=== PATIENT | male | born 1980 | race Caucasian/White ===

== ENCOUNTER 2018-08-03 17:03 | Emergency (ER) | payer MEDICAID, OTHER ==
[~2018-08-03] VITALS: Ht 188 cm; Wt 83.9 kg
[2018-08-03 17:44] VITALS: BP 113/74
--- NOTE | 2018-08-03 17:44 | NUR ---
ED Nurse Note: left arm reddened and edema noted x 2 days per pt. pt has been injecting self. pt noted to have redness on the left forearm. seen by joyce byrd. will continue to monitor
[2018-08-03] MEDS ORDERED: Clindamycin 600mg 50 ML IVPB ONE (18:00)
[2018-08-03] MEDS ORDERED: IBUPROFEN600 MG ORAL (18:41)
[2018-08-03] MEDS ORDERED: CLINDAMYCIN HC300 MG ORAL (18:41)
[2018-08-03 18:50] VITALS: BP 113/74
--- NOTE | 2018-08-03 18:50 | NUR ---
ER DISCHARGE NOTE: Patient is cleared to be discharged per ERMD, pt is aox4, on room air, with stable vital signs. pt was given dc and prescription instructions, pt was able to verbalize understanding, pt id band and iv site removed without complications. pt is able to ambulate with steady gait. pt took all belongings.ED
--- NOTE | 2018-08-03 20:23 | Emergency Room Report ---
History of Present Illness General Chief Complaint: Skin Rash/Abscess Source: Patient Present Illness HPI Patient is a 38-year-old male presenting for possible skin infection. He does admit to IV drug abuse. He noticed redness at the left antecubital area 2 days prior which has been slowly increasing in size. Pain is an 8 out of 10 dull ache worse with touch. Does not radiate. He denies any discharge or bleeding. He denies other symptoms including nausea, vomiting, fever, chills, numbness or tingling. He does admit to having HIV with a recent T-cell count of approximately 1100. He is actively being treated. Allergies: Coded Allergies: No Known Allergies (Unverified , 08/03/18) Patient History Past Medical History: see triage record Pertinent Family History: none Reviewed Nursing Documentation: PMH: Agreed; PSxH: Agreed Nursing Documentation-PMH Past Medical History: No History, Except For Review of Systems All Other Systems: negative except mentioned in HPI Physical Exam Vital Signs Date Time Temp Pulse Resp B/P (MAP) Pulse Ox O2 Delivery O2 Flow Rate FiO2 08/03/18 17:18 97.7 95 20 113/74 99 Room Air Sp02 EP Interpretation: reviewed, normal General Appearance: no apparent distress, alert, GCS 15, non-toxic Head: normocephalic, atraumatic Respiratory: chest non-tender, lungs clear, normal breath sounds, speaking full sentences Cardiovascular #1: regular rate, rhythm, no edema Musculoskeletal: back normal, gait/station normal, normal range of motion, inflammation, tender - TTP over the L antecubital area Neurologic: alert, oriented x3, responsive, motor strength/tone normal, sensory intact, speech normal Psychiatric: judgement/insight normal, memory normal, mood/affect normal, no suicidal/homicidal ideation Skin: rash - erythema to L antecubital region Medical Decision Making PA Attestation Dr. Vences is my supervising physician. Patient management was discussed with my supervising physician Diagnostic Impression: Primary Impression: Cellulitis Qualified Codes: L03.114 - Cellulitis of left upper limb ER Course The patient is a 38-year-old male presenting for left arm infection Differential diagnosis considered but not limited to: Cellulitis, abscess, phlebitis, compartment syndrome, among others Physical exam: Afebrile. No apparent distress Left arm antecubital region has erythema. No fluctuance or induration. Area is hot to the touch. Tender to palpation. Full active range of motion of the elbow, wrist, and fingers are intact Sensation is intact to light touch Patient is given IV clindamycin in the emergency department and discharged with prescription for clindamycin. He is told that he needs to follow-up with primary care within the next 3 days. He is given ER return precautions including if the redness enlarges, pain worsens, or if he notices fever or chills Last Vital Signs Date Time Temp Pulse Resp B/P (MAP) Pulse Ox O2 Delivery O2 Flow Rate FiO2 08/03/18 18:50 97.7 90 20 113/74 99 Room Air Status: improved Disposition: HOME, SELF-CARE Condition: Improved Scripts Clindamycin Hcl (CLINDAMYCIN HCL) 300 Mg Capsule 300 MG ORAL FOUR TIMES A DAY, #28 CAP Prov: ODELL MCGUIRE 08/03/18 Ibuprofen* (MOTRIN*) 600 Mg Tablet 600 MG ORAL Q8H PRN for For Pain, #30 TAB 0 Refills Prov: ODELL MCGUIRE 08/03/18 Patient Instructions: Cellulitis Additional Instructions: I discussed my findings with the patient. All questions and concerns have been answered. Treatment and medication compliance have been addressed. I advised the patient that they need to follow up with their primary doctor as soon as possible. Return to ER if redness worsens, new symptoms arise such as fever, or if needed for any reason. Patient verbalized understanding of discharge instructions. ODELL MCGUIRE Aug 03, 2018 20:23
== END 2018-08-03 18:50 | disposition home or self-care (01) ==
LOC: EMR 18:04
DX: L03.114 Cellulitis of left upper limb (principal); B20 Human immunodeficiency virus [HIV] disease
CPT/HCPCS: 96365; 99284; S0077

== ENCOUNTER 2018-08-07 21:30 | Emergency (ER) | payer MEDICAID ==
[~2018-08-07] VITALS: Ht 188 cm; Wt 83.9 kg
[~2018-08-07 21:30] MED LIST: CLINDAMYCIN HC300 MG ORAL; IBUPROFEN600 MG ORAL
[2018-08-07 21:42] VITALS: BP 136/91
--- NOTE | 2018-08-07 21:42 | NUR ---
ED Nurse Note: AMBULATED IN TO ER DUE TO ABSCESS ON LEFT ARM 06/01. PT REPORTS THAT HE WAS SEEN BY ERMD 08/02/18 FOR SAME REASON.
[2018-08-07] MEDS ORDERED: TRIUMEQ 600-501 EACH PO (21:44)
[2018-08-07] MEDS ORDERED: ACYCLOVIR200 MG ORAL (21:44)
--- NOTE | 2018-08-07 22:10 | Emergency Room Report ---
History of Present Illness General Chief Complaint: Skin Rash/Abscess Source: Patient Present Illness HPI Is a 38-year-old male who is left-handed. He presents with chief complaint of wound check. He was here 4 days ago and had infection to the left arm. He is taking clindamycin and he said the redness is much improved. Now there is a swelling to the antecubital area. It is tender. No nausea no vomiting. No fever or chills. No other complaint. Allergies: Coded Allergies: No Known Allergies (Unverified , 08/03/18) Patient History Past Medical History: see triage record, old chart reviewed Past Surgical History: none Pertinent Family History: none Social History: Reports: drug use Immunizations: other Reviewed Nursing Documentation: PMH: Agreed; PSxH: Agreed Nursing Documentation-PMH Past Medical History: No History, Except For Review of Systems Eye: Denies: eye pain, blurred vision ENT: Denies: ear pain, nose congestion, throat swelling Respiratory: Denies: cough, shortness of breath Cardiovascular: Denies: chest pain, palpitations Gastrointestinal: Denies: abdominal pain, diarrhea, nausea, vomiting Musculoskeletal: Denies: back pain, joint pain Skin: Denies: rash Neurological: Denies: headache, numbness Endocrine: Denies: increased thirst, increased urine Hematologic/Lymphatic: Denies: easy bruising All Other Systems: negative except mentioned in HPI Physical Exam Vital Signs Date Time Temp Pulse Resp B/P (MAP) Pulse Ox O2 Delivery O2 Flow Rate FiO2 08/07/18 21:38 98.4 86 14 136/91 97 Room Air vitals normal Sp02 EP Interpretation: reviewed, normal General Appearance: well appearing, no apparent distress, alert Head: normocephalic, atraumatic Eyes: bilateral eye PERRL, bilateral eye EOMI ENT: hearing grossly normal, normal pharynx Neck: full range of motion, supple, no meningismus Respiratory: chest non-tender, lungs clear, normal breath sounds Cardiovascular #1: regular rate, rhythm, no murmur Gastrointestinal: normal bowel sounds, non tender, no mass, no organomegaly, no bruit, non-distended Musculoskeletal: back normal, gait/station normal, normal range of motion, other - Left arm: There is a 3 cm mildly tender mass over the antecubital area. No redness. No fluctuant. Neurologic: alert, oriented x3 Psychiatric: mood/affect normal Skin: warm/dry Procedures Incision and Drainage Incision and Drainage : Consent: Verbal Site: Left antecubital Blade Size: 11 I & D Procedure: betadine prep, sterile drapes applied, sterile dressing applied Wound Location: upper extremity Anesthesia: 1% Lidocaine Volume Anesthetic (ccs): 2 Patient Tolerated: Well Complications: None Progress After lidocaine injection, I made a 1 cm incision over the mass. There is no purulent discharge. Medical Decision Making Diagnostic Impression: Primary Impression: Thrombophlebitis ER Course patient presents with a wound check. That mass is probably of thrombophlebitis or superficial DVT. There is no abscess. No need for new antibiotics. Clindamycin is working for him. We'll discharge home. Last Vital Signs Date Time Temp Pulse Resp B/P (MAP) Pulse Ox O2 Delivery O2 Flow Rate FiO2 08/07/18 21:42 98.4 86 14 136/91 97 Room Air Status: improved Disposition: HOME, SELF-CARE Condition: Stable Additional Instructions: Continue with your antibiotics. Take probiotics to decrease risks of diarrhea. Follow-up with your doctor in 7 days for recheck. Return if worse. Warm compress to the area. Javier Nails MD Aug 07, 2018 22:10
[2018-08-07 22:22] VITALS: BP 136/91
--- NOTE | 2018-08-07 22:28 | NUR ---
ED Nurse Note: Pt cleared by health care Provider for discharge. DC instructions/prescription was given and explained to pt and verbalized understanding of teachings. All medical deviecs such as ID band removed. Pt is AAO x4, ambulatory and left with all personal belongings.
== END 2018-08-07 22:22 | disposition home or self-care (01) ==
LOC: EMR 22:00
DX: I80.9 Phlebitis and thrombophlebitis of unspecified site (principal); R22.32 Localized swelling, mass and lump, left upper limb
CPT/HCPCS: 10060; 99283; Z7502

== ENCOUNTER 2019-05-31 16:35 | Emergency (ER) | payer MEDICAID ==
[~2019-05-31] VITALS: Ht 188 cm; Wt 79.4 kg
[~2019-05-31 16:35] MED LIST changes: +ACYCLOVIR200 MG ORAL; +TRIUMEQ 600-501 EACH PO
[2019-05-31 16:50] VITALS: BP 118/74
--- NOTE | 2019-05-31 16:50 | NUR ---
ED Nurse Note: Pt walked in from home c/o left buttock abcess. Respirations even and unlabored on room. Heart rate elevated @ 120 bpm. All other vitals stable as documented.
[2019-05-31] MEDS ORDERED: BACTRIM DS TAB1 EAC1 ORAL (17:16)
--- NOTE | 2019-05-31 17:24 | Emergency Room Report ---
History of Present Illness General Chief Complaint: Skin Rash/Abscess Source: Patient Present Illness HPI Disclaimer: Please note that this report is being documented using [employer] technology. This can lead to erroneous entry secondary to incorrect interpretation by the dictating instrument. HPI: 39-year-old male history of HIV on retroviral therapy, recurrent staph infections, former IV drug abuse presents for evaluation of draining wound on his left buttock. Symptoms began 1 week ago. He noticed a pimple/boil that eventually ruptured and has been draining purulent material. He describes worsening spreading, edema, erythema and warm to the touch. Denies vomiting, fever, chills, chest pain, shortness of breath, diarrhea, dysuria hematuria. He was noted to be tachycardic in triage but he states he is very anxious as he keeps getting recurrent staph infections. He is compliant with his retroviral treatment. He has responded to antibiotics in the past. PMH: HIV, former IV drug abuse PSH: Reviewed Allergies: Denied Social Hx: Former IV drug abuse Allergies: Coded Allergies: No Known Allergies (Unverified , 08/03/18) Review of Systems All Other Systems: limited Physical Exam Vital Signs Date Time Temp Pulse Resp B/P (MAP) Pulse Ox O2 Delivery O2 Flow Rate FiO2 05/31/19 16:41 98.1 125 20 121/79 (93) 99 Room Air Procedures Ultrasound Ultrasound : Consent: Verbal Progress Soft tissue US of the Left buttock: No evidence of fluid collection/abscess. Moderate cobblestoning. Medical Decision Making Diagnostic Impression: Primary Impression: Cellulitis ER Course 39-year-old male with prior history of IV drug abuse, HIV compliant with retroviral therapy and recurrent skin infections presents for evaluation of draining wound over the left buttocks. Present for approximately 1 week. Bedside ultrasound shows cobblestoning but no evidence of deep space infection. This is more consistent with a cellulitis as opposed to an abscess. The wound is draining and I was able to express some purulent material though was not significant in quantity. He is afebrile with stable vital signs aside from tachycardia but he states that he is very nervous over this infection. He has responded well to outpatient oral antibiotics in the past. He will be started on Bactrim given the concern over MRSA. Do not believe he requires other emergent labs or imaging at this time. I instructed him to return to the emergency department if his symptoms or wound worsened but otherwise to follow- up with his PMD. Wound was cleaned and re-bandaged. Stable for outpatient follow-up. He understands reasons to return to the emergency department. Last Vital Signs Date Time Temp Pulse Resp B/P (MAP) Pulse Ox O2 Delivery O2 Flow Rate FiO2 05/31/19 16:41 98.1 125 20 121/79 (93) 99 Room Air Disposition: HOME, SELF-CARE Condition: Stable Scripts Trimethoprim/Sulfamethoxazole 160/800* (BACTRIM DS TABLET*) 1 Each Tablet 1 TAB ORAL Q12H for 14 Days, #28 TAB 0 Refills Prov: Igor Morgan MD 05/31/19 Referrals: NON PHYSICIAN (PCP) [facility]. [facility] Patient Instructions: Cellulitis Additional Instructions: Start and complete the entire course of antibiotics as instructed. If you see worsening drainage, severe bleeding, spreading of the redness, develop fever, vomiting or other signs of worsening illness return to the emergency department immediately for reevaluation. Otherwise, follow-up with your primary doctor/ clinic within the next 2 to 3 days. Return with any new or worsening symptoms. Igor Morgan MD May 31, 2019 17:24
--- NOTE | 2019-05-31 17:30 | NUR ---
ER DISCHARGE NOTE: Patient is cleared to be discharged per ERMD, pt is aox4, on room air, with stable vital signs. pt was given dc and prescription instructions, pt was able to verbalize understanding, pt id leonora. pt is able to ambulate with steady gait. pt took all belongings. Addendum: 05/31/19 at 1900 by [facility]. ED cleared pt for discharge
[2019-05-31 18:58] VITALS: BP 128/74
== END 2019-05-31 17:30 | disposition home or self-care (01) ==
LOC: EMR 17:10
DX: L03.317 Cellulitis of buttock (principal); B20 Human immunodeficiency virus [HIV] disease; R00.0 Tachycardia, unspecified
CPT/HCPCS: 99282